=== PATIENT | female | born 1960 | race Caucasian/White ===

== ENCOUNTER 2017-05-05 08:59 | Emergency (ER) | payer MEDICAID ==
[~2017-05-05] VITALS: Ht 160 cm; Wt 63.0 kg
[~2017-05-05 08:59] MED LIST: DIAZ5TAB PO; FURO-150 PO; IBUP-1984 PO; LISI40TA4 PO; MAGN400T6 PO; METF500T PO; NAPR-56 PO; OMEP20TA23 PO; ONDA8TAB9 PO
[2017-05-05] MEDS ORDERED: AMOX500C2 PO (11:18)
[2017-05-05 12:18] VITALS: BP 122/63
== END 2017-05-05 12:21 | disposition home or self-care (01) ==
LOC: ER 09:00
DX: H66.92 Otitis media, unspecified, left ear (principal); H61.23 Impacted cerumen, bilateral; K21.9 Gastro-esophageal reflux disease without esophagitis; G89.29 Other chronic pain; Z90.49 Acquired absence of other specified parts of digestive tract
CPT/HCPCS: 69210; 99284

== ENCOUNTER 2018-02-18 08:45 | Emergency (ER) | payer MEDICAID ==
[~2018-02-18] VITALS: Ht 160 cm; Wt 63.4 kg
[2018-02-18 10:40] VITALS: BP 109/61
[2018-02-18] MEDS ORDERED: ibuprofen tablet 400 MG TABLET PO ONE (10:55)
[2018-02-18 11:23] LABS: CLARITY,URINE CLOUDY (Clear); COLOR,URINE YELLOW (Yellow); GLUCOSE, URINE NEGATIVE (Neg); KETONES,URINE NEGATIVE (Neg); LEUKOCYTE ESTERASE ,URINE MODERATE (Neg); NITRITES, URINE NEGATIVE (Neg); OCCULT BLOOD,URINE TRACE-INTACT (Neg); PROTEIN,URINE TRACE mg/dl (Neg); UROBILINOGEN,URINE 0.2 E.U/dL (0.2-1.0)
[2018-02-18 11:29] LABS: UA COLLECTION TYPE CLN CATCH MIDSTREAM
[2018-02-18 11:31] LABS: WBC,URINE TNTC /HPF (0-4)
[2018-02-18 11:32] LABS: BACTERIA,URINE 2+ /HPF (Neg); SQUAMOUS EPITHELIAL CELL,UR MANY /LPF (FEW)
[2018-02-18 11:39] LABS: BASOPHILS # (AUTO) 0.1 X10'3 (0-0.2); BASOPHILS % (AUTO) 0.5 % (0-1); EOSINOPHILS # (AUTO) 0.2 X10'3 (0-0.9); EOSINOPHILS % (AUTO) 2.2 % (0-6); HEMATOCRIT 44.9 % (35.0-45.0); HEMOGLOBIN 14.6 g/dl (12.0-16.0); LYMPHOCYTES % (AUTO) 43.2 % (21-51); MEAN CORPUSCULAR HEMOGLOBIN 31.9 PG (27.0-31.0); MEAN CORPUSCULAR HGB CONC 32.4 % (33.0-36.5); MEAN CORPUSCULAR VOLUME 98.5 FL (78-98); MEAN PLATELET VOLUME 9.8 FL (7.4-10.4); MONOCYTES # (AUTO) 1.2 X10'3 (0-0.9); MONOCYTES % (AUTO) 10.7 % (2-12); NEUTROPHILS % (AUTO) 43.4 % (42-75); PLATELET COUNT 287 X10'3 (140-440); RED BLOOD COUNT 4.56 X10'6 (4.20-5.60); RED CELL DISTRIBUTION WIDTH 14.1 % (11.5-14.5); WHITE BLOOD COUNT 11.5 X10'3 (4.5-11.0)
[2018-02-18] MEDS ORDERED: ciprofloxacin 250mg tablet PO ONE (11:50)
[2018-02-18 12:05] LABS: ALANINE AMINOTRANSFERASE 88 U/L (12-78); ALBUMIN 3.6 G/DL (3.4-5.0); ALBUMIN/GLOBULIN RATIO 0.9 (1.1-1.5); ALKALINE PHOSPHATASE 76 IU/L (46-116); ANION GAP 9 (8-16); ASPARTATE AMINO TRANSFERASE 64 U/L (10-37); BILIRUBIN,TOTAL 0.5 MG/DL (0.1-1.0); BLOOD UREA NITROGEN 28 MG/DL (7-18); BUN/CREATININE RATIO 20.9 (6.6-38.0); CALCIUM 9.7 MG/DL (8.5-10.1); CHLORIDE 103 MMOL/L (99-107); CREATININE 1.34 MG/DL (0.40-0.90); POTASSIUM 5.1 MMOL/L (3.5-5.1); SODIUM 138 MMOL/L (135-145); TOTAL PROTEIN 7.6 G/DL (6.4-8.2); eGFR 41 ML/MIN
[2018-02-18 12:06] LABS: GLUCOSE 162 MG/DL (70-104)
[2018-02-18] MEDS ORDERED: CIPR-260 PO (12:09)
[2018-02-18 12:10] LABS: CLARITY,URINE SLIGHTLY CLOUDY (Clear); COLOR,URINE YELLOW (Yellow); GLUCOSE, URINE NEGATIVE (Neg); KETONES,URINE TRACE mg/dl (Neg); LEUKOCYTE ESTERASE ,URINE SMALL (Neg); NITRITES, URINE NEGATIVE (Neg); OCCULT BLOOD,URINE NEGATIVE (Neg); PROTEIN,URINE TRACE mg/dl (Neg); UROBILINOGEN,URINE 0.2 E.U/dL (0.2-1.0)
[2018-02-18 12:22] LABS: UA COLLECTION TYPE STRAIGHT CATH
[2018-02-18 12:23] LABS: HYALINE CASTS >30 /LPF (NEGATIVE); MUCUS STRANDS FEW /LPF (Neg); SQUAMOUS EPITHELIAL CELL,UR MANY /LPF (FEW)
[2018-02-18 12:24] LABS: BACTERIA,URINE 1+ /HPF (Neg); RBC,URINE 0-2 /HPF (0-2)
== END 2018-02-18 12:16 | disposition home or self-care (01) ==
LOC: ER 08:45
DX: N39.0 Urinary tract infection, site not specified (principal); R63.4 Abnormal weight loss; M79.10 Myalgia, unspecified site; K21.9 Gastro-esophageal reflux disease without esophagitis; E11.9 Type 2 diabetes mellitus without complications; G89.29 Other chronic pain; Z79.899 Other long term (current) drug therapy; Z87.891 Personal history of nicotine dependence; Z87.440 Personal history of urinary (tract) infections; Z87.19 Personal history of other diseases of the digestive system; Z90.49 Acquired absence of other specified parts of digestive tract; Z90.81 Acquired absence of spleen
CPT/HCPCS: 36415; 80053; 81001; 85025; 87088; 99283

== ENCOUNTER 2021-07-03 10:17 | Emergency (ER) | payer MEDICAID ==
[~2021-07-03] VITALS: Ht 160 cm; Wt 64.5 kg
[~2021-07-03 10:17] MED LIST changes: +CIPR-260 PO; +LISI40TA13 PO; -LISI40TA4 PO; +MAGN400T56 PO; -MAGN400T6 PO
[2021-07-03 11:07] VITALS: BP 114/74
== END 2021-07-03 12:38 | disposition home or self-care (01) ==
LOC: ER 10:17
DX: H72.91 Unspecified perforation of tympanic membrane, right ear (principal); H61.22 Impacted cerumen, left ear; K21.9 Gastro-esophageal reflux disease without esophagitis; E11.9 Type 2 diabetes mellitus without complications; G89.29 Other chronic pain; Z79.899 Other long term (current) drug therapy
CPT/HCPCS: 99282

== ENCOUNTER 2022-07-02 10:34 | Emergency (ER) | payer MEDICAID ==
[~2022-07-02] VITALS: Ht 160 cm; Wt 64.5 kg
[2022-07-02 10:56] VITALS: BP 120/87
[2022-07-02] MEDS ORDERED: HYDROcodone/acetaminophen 5mg/325mg tablet PO ONE (11:00)
[2022-07-02] MEDS ORDERED: NAPR-56 PO (13:41)
== END 2022-07-02 13:52 | disposition home or self-care (01) ==
LOC: ER 10:34
DX: S93.432A Sprain of tibiofibular ligament of left ankle, initial encounter (principal); E11.9 Type 2 diabetes mellitus without complications; G89.29 Other chronic pain; Z87.440 Personal history of urinary (tract) infections; Z86.19 Personal history of other infectious and parasitic diseases; Z72.89 Other problems related to lifestyle; Z79.2 Long term (current) use of antibiotics; Z79.899 Other long term (current) drug therapy; W01.198A Fall on same level from slipping, tripping and stumbling with subsequent striking against other object, initial encounter; Y93.89 Activity, other specified; Y92.89 Other specified places as the place of occurrence of the external cause; Y99.8 Other external cause status; Z90.49 Acquired absence of other specified parts of digestive tract
CPT/HCPCS: 73610; 99283; A6449

== ENCOUNTER 2023-08-21 11:55 | Emergency (ER) | payer MEDICAID ==
[~2023-08-21] VITALS: Ht 162.6 cm; Wt 63.6 kg
[2023-08-21] MEDS ORDERED: SULF1TAB49 PO (13:38)
[2023-08-21] MEDS ORDERED: CEPH-585 PO (13:38)
[2023-08-21] MEDS ORDERED: CHLO118L TOP (13:38)
[2023-08-21 13:44] VITALS: BP 122/70; PULSE 68; RESP 16; TEMP 97.7; O2SAT 97
== END 2023-08-21 13:45 | disposition home or self-care (01) ==
LOC: ER 11:55
DX: L03.032 Cellulitis of left toe (principal); K21.9 Gastro-esophageal reflux disease without esophagitis; E11.9 Type 2 diabetes mellitus without complications; Z98.890 Other specified postprocedural states; Z90.49 Acquired absence of other specified parts of digestive tract; Z79.899 Other long term (current) drug therapy; Z79.2 Long term (current) use of antibiotics
CPT/HCPCS: 10060; 87070; 87077; 87186; 99284; A6223; 26010